=== PATIENT | male | born 1985 | race Caucasian/White ===

== ENCOUNTER 2018-08-14 16:06 | Emergency (ER) | payer MEDICAID ==
[~2018-08-14] VITALS: Ht 157.5 cm; Wt 60.2 kg
[2018-08-14 16:12] VITALS: BP 174/102; PULSE 110; RESP 16; Ht 157.5 cm; Wt 60.2 kg
[2018-08-14] MEDS ORDERED: CEPH-443 PO (16:39)
[2018-08-14] MEDS ORDERED: SULF1TAB31 PO (16:39)
--- NOTE | 2018-08-15 00:44 | ERD ---
ER Documentation Chief Complaint Chief Complaint BIB RA FOR EVAL OF LEFT HIP ABCESS WITH DRAINAGE HPI 33-year-old male patient with no significant past medical history presents to the ED with a left hip cyst that has been going on for the last 2 years. Patient reports that it began as a cyst, began to get bigger as the months went by. Denies any fever, chills, nausea, vomiting him a loss of sensation, loss of range of motion. Denies any fever, chills, nausea, vomiting, abdominal pain, flank pain, dysuria, urgency, frequency. ROS All systems reviewed and are negative except as per history of present illness. Medications Home Meds Active Scripts Cephalexin* (Keflex*) 500 Mg Capsule, 500 MG PO QID for 7 Days, CAP Prov:PORSHA ERNANDEZ PA-C 08/14/18 Sulfamethoxazole/Trimethoprim* (Bactrim Ds* Tablet) 1 Each Tablet, 1 TAB PO BID for 7 Days, #14 TAB Prov:PORSHA ERNANDEZ PA-C 08/14/18 FmHx Family History: No diabetes, No coronary disease Physical Exam Vitals Vital Signs Date Temp Pulse Resp B/P (MAP) Pulse Ox O2 O2 Flow FiO2 Time Delivery Rate 08/14/18 98.5 110 16 174/102 99 16:12 (126) Physical Exam Const: Yre-tgu-vnakybdzm, well-nourished. In no acute distress. Head: Atraumatic, normocephalic Eyes: Normal Conjunctiva without injection. No purulent discharge. ENT: Normal external ear, nose. Moist oropharynx without tonsillar exudates. Non-erythematous pharynx. Uvula midline. No drooling. No trismus. Neck: No cervical midline tenderness. Full range of motion. No meningismus. No cervical lymphadenopathy. No JVD. Resp: Clear to auscultation bilaterally. No wheezing, rhonchi, rales, or crackles. No accessory muscle use. No retractions. Cardio: Regular rate and rhythm. No murmurs, rubs or gallops. Abd: Soft, nontender, non distended. Normal bowel sounds. No palpable masses. No rebound tenderness. No guarding. Negative McBurney's point. Negative psoas sign. Negative obturator sign. Skin: No petechiae or rashes. 8 x 4 cm spontaneously draining abscess noted of the left hip. No surrounding erythema, fluctuance, induration. Back: No midline tenderness. No CVA tenderness. Ext: No cyanosis, or edema. Neur: Awake and alert. Normal gait. Normal coordination. Psych: Normal Mood and Affect Procedures/MDM 33-year-old male patient with no significant past medical history presents the ED complaining of left hip cyst. Patient is afebrile and nontoxic-appearing. Patient's blood pressure is 174/102. Blood Pressure Assessment: Patient's blood pressure was elevated (>120/80) but appears stable without evidence of hypert ension emergency or urgency. The patient was counseled about the risks of hypertension and urged to pursue outpatient monitoring and therapy within a week with their primary care physician. Left hip abscess versus chronically infected sebaceous cyst noted about 8 cm x 4 cm in size, spontaneously draining with thick brownish milky discharge. Patient is afebrile and appropriate for outpatient antibiotics. My supervising physician, Dr. Cueto also evaluated patient at this time. Low suspicion for septic arthritis, anaphylaxis, scabies, SJS/TEN, TSS, Lyme's Disease, syphilis, RMSF, shingles, disseminated gonorrhea chlamydia, DIC, TTP, ITP, erythema multiforme, sepsis, cellulitis, necrotizing fasciitis, gangrene, meningococcemia, allergic contact dermatitis, urticaria, eczema, tinea infection, or other emergent conditions. Diagnosis: Abscess Discharge medications: Keflex, Bactrim Follow up with primary care physician in 1-2 days for a referral to see a rubber goods supervisor for further evaluation and treatment. Instructed patient to return to the ED sooner for any worsening symptoms. Patient's questions were answered. Patient is hemodynamically stable. Patient understood and agreed with discharge plan. Patient discharged stable. Disclaimer: Inadvertent spelling and grammatical errors are likely due to EHR/dictation software use and do not reflect on the overall quality of patient care. Also, please note that the electronic time recorded on this note does not necessarily reflect the actual time of the patient encounter. Departure Diagnosis: Primary Impression: Sebaceous cyst Additional Impression: Abscess Condition: Stable Patient Instructions: Sebaceous Cyst, Infected (Abx Tx) [facility] Usted se lees hecho un examen mdico de control que le indica que no est en madisyn condicin que requiera tratamiento urgente en el Departamento de Emergencia. Un estudio ms profundo y el tratamiento de haile condicin pueden esperar sin ningn riesgo hasta que usted sea atendida/o en el consultorio de haile mdico o madisyn clnica. Es responsabilidad suya arreglar madisyn sena para el seguimiento del manasa. MANEJO DE CONDICIONES NO URGENTES EN EL FUTURO 1) Si usted tiene un mdico de atencin primaria: Usted debera llamar a haile mdico de atencin primaria antes de venir al departamento de emergencia. Despus de las horas de consultorio, haile doctor o haile asociado/a est disponible por telfono. El mdico o enfermero de rosalba en el servicio telefnico puede asesorarle por corey medio para atender el problema, o manasa contrario se puede programar madisyn sena. 2) Si usted no tiene un mdico de atencin primaria: Llame al mdico o clnica de referencia que aparece abajo sherri las horas de consultorio para hacer madisyn sena para que le vean. CLINICAS: [facility] [phone] [facility] [phone] [facility] [phone] [facility] [place] [phone] [facility] [place] [id number] [phone] [facility]. [phone] [facility] () Usted se lees hecho un examen mdico de control que le indica que no est en madisyn condicin que requiera tratamiento urgente en el Departamento de Emergencia. Un estudio ms profundo y el tratamiento de haile condicin pueden esperar sin ningn riesgo hasta que usted sea atendida/o en el consultorio de haile mdico o madisyn clnica. Es responsabilidad suya arreglar madisyn sena para el seguimiento del manasa. MANEJO DE CONDICIONES NO URGENTES EN EL FUTURO 1) Si usted tiene un mdico de atencin primaria: Usted debera llamar a haile mdico de atencin primaria antes de venir al departamento de emergencia. Despus de las horas de consultorio, haile doctor o haile asociado/a est disponible por telfono. El mdico o enfermero de rosalba en el servicio telefnico puede asesorarle por corey medio para atender el problema, o manasa contrario se puede programar madisyn sena. 2) Si usted no tiene un mdico de atencin primaria: Llame al mdico o condado institucions de referencia que aparece abajo sherri las horas de consultorio para hacer madisyn sena para que le vean. SI USTED NO PUEDE PAGAR PARA GENOVEVA UN MEDICO puede ir a: [facility] [address] [place] [address] [facility] [address] [place] [address] [facility] [address] [place] [address] [facility] [facility] [address] [place], [place] [id number] Additional Instructions: Llame al doctor MAANA y alessio madisyn SENA PARA DENTRO DE 2-3 CATHERINE para madisyn remisin para genoveva a un dermatlogo para la evaluacin adicional y la biopsia probable.Dgale a la secretaria que nosotros le instruimos hacer esta sena.Avise o llame si haile condicin se empeora antes de la sena. Regresa aqui si peor o no mejor. WOUND CHECK:CONSULTE A HAILE MDICO EN 2 choi para genoveva HAILE HERIDA. PORSHA ERNANDEZ PA-C Aug 15, 2018 00:44
== END 2018-08-14 17:18 | disposition home or self-care (01) ==
LOC: FTE 16:06
DX: L72.3 Sebaceous cyst (principal)